=== PATIENT | female | born 2005 | race Caucasian/White ===

== ENCOUNTER 2024-04-28 10:58 | Emergency (ER) | payer SELFPAY ==
[~2024-04-28] VITALS: Ht 170.2 cm; Wt 68.2 kg
[2024-04-28 11:02] VITALS: BP 121/85; TEMP 98.5
[2024-04-28 14:05] VITALS: PULSE 68
== END 2024-04-28 14:05 | disposition home or self-care (01) ==
LOC: COL.ER 10:58
DX: S93.402A Sprain of unspecified ligament of left ankle, initial encounter (principal); X50.1XXA Overexertion from prolonged static or awkward postures, initial encounter; Y93.01 Activity, walking, marching and hiking